=== PATIENT | female | born 2000 | race Caucasian/White ===

== ENCOUNTER → 2019-01-19 | Outpatient (REF) | payer MEDICAID, OTHER | LOC: M LAB REF 19:40 | PROVIDERS: ATTEND Physician Assistant | DX: J02.9 Acute pharyngitis, unspecified (principal) ==

== ENCOUNTER 2019-05-25 02:04 | Emergency (ER) | payer OTHER, SELFPAY ==
[~2019-05-25] VITALS: Ht 160 cm; Wt 65.7 kg
[2019-05-25] MEDS ORDERED: LEVO0.1T PO (02:16)
[2019-05-25] MEDS ORDERED: DIPH25CA32 PO (02:16)
[2019-05-25] MEDS ORDERED: diphenhydrAMINE INJ 50MG/ML VIAL (J1200) IV STA (02:25)
[2019-05-25] MEDS ORDERED: diphenhydrAMINE INJ 50MG/ML VIAL (J1200) IV ONE (02:30)
[2019-05-25] MEDS ORDERED: dexameTHASONE 20 MG/5 ML VIAL (J1100) IV ONE ×2 (02:30)
[2019-05-25] MEDS ORDERED: PRED20TA PO (03:52)
[2019-05-25 04:01] VITALS: BP 136/78
== END 2019-05-25 04:10 | disposition home or self-care (01) ==
LOC: M ED 02:04
DX: T78.40XA Allergy, unspecified, initial encounter (principal); Z91.011 Allergy to milk products; Z91.018 Allergy to other foods; Z79.899 Other long term (current) drug therapy
CPT/HCPCS: 96374; 96375; 99284; J1100; J1200

== ENCOUNTER → 2019-10-05 | Outpatient (REF) | payer OTHER ==
[~2019-10-05] MED LIST: DIPH25CA32 PO; LEVO0.1T PO; PRED20TA PO
[2019-10-05 14:05] LABS: ALT/SGPT 44 U/L (12-78); BILIRUBIN,TOTAL 0.5 MG/DL (0.2-1.0); BLOOD UREA NITROGEN 9 MG/DL (7-18); CALCIUM LEVEL 8.9 MG/DL (8.5-10.1); CARBON DIOXIDE LEVEL 27 MEQ/L (21-32); CHLORIDE LEVEL 107 MEQ/L (98-107); CHOLESTEROL LEVEL 114 MG/DL (<200); CHOLESTEROL RISK RATIO 2.375 (<5); CREATININE FOR GFR 0.66 MG/DL (0.55-1.30); FREE T4 0.93 NG/DL (0.78-1.33); GLUCOSE, FASTING 79 MG/DL (70-100); HDL CHOLESTEROL 48 MG/DL (>40); LDL CHOLESTEROL 50 MG/DL (<100); NON-HDL-C 66 MG/DL; POTASSIUM SERUM 3.9 MEQ/L (3.5-5.1); SODIUM LEVEL 140 MEQ/L (136-145); TOTAL 25(OH) VITAMIN D 22.6 NG/ML (30.0-100.0); TOTAL PROTEIN 7.1 GM/DL (6.4-8.2); TRIGLYCERIDES LEVEL 80 MG/DL (<150)
== END ==
LOC: M SFHCPLAZ 11:03
PROVIDERS: ATTEND Physician Assistant
DX: Z00.00 Encounter for general adult medical examination without abnormal findings (principal); Z13.29 Encounter for screening for other suspected endocrine disorder; Z13.220 Encounter for screening for lipoid disorders

== ENCOUNTER 2024-09-30 07:38 | Emergency (ER) | payer OTHER, SELFPAY ==
[~2024-09-30] VITALS: Ht 157.5 cm; Wt 74.1 kg
[~2024-09-30 07:38] MED LIST changes: +DIPH-435 PO; -DIPH25CA32 PO
[2024-09-30] MEDS ORDERED: ACET-683 PO (13:46)
[2024-09-30] MEDS ORDERED: IBUP80TA PO (13:47)
[2024-09-30 14:36] VITALS: BP 129/62; TEMP 98.3; O2SAT 100
== END 2024-09-30 14:36 | disposition home or self-care (01) ==
LOC: M ED 07:38
DX: S82.62XA Displaced fracture of lateral malleolus of left fibula, initial encounter for closed fracture (principal); Y92.9 Unspecified place or not applicable; Y93.9 Activity, unspecified; Y99.9 Unspecified external cause status; W01.0XXA Fall on same level from slipping, tripping and stumbling without subsequent striking against object, initial encounter; Z91.012 Allergy to eggs; Z91.011 Allergy to milk products; Z79.1 Long term (current) use of non-steroidal anti-inflammatories (NSAID)

== ENCOUNTER → 2024-10-01 | Outpatient (CLI) | payer SELFPAY ==
[~2024-10-01] MED LIST changes: +ACET-683 PO; +IBUP80TA PO
== END ==
LOC: M SOG 13:48
PROVIDERS: ATTEND Orthopaedic Surgery
DX: S82.61XA Displaced fracture of lateral malleolus of right fibula, initial encounter for closed fracture (principal); W18.30XA Fall on same level, unspecified, initial encounter; Y92.009 Unspecified place in unspecified non-institutional (private) residence as the place of occurrence of the external cause

== ENCOUNTER → 2024-10-01 | Outpatient (CLI) | payer SELFPAY ==
[2024-10-01 17:10] LABS: BASO % 0.2 % (0.0-1.0); EOS # 0.4 10^3/uL (0.0-0.5); HEMOGLOBIN 14.9 g/dl (12.0-15.5); LYMPH # 2.3 10^3/uL (1.5-5.0); LYMPH % 17.8 % (24.0-44.0); MEAN CORPUSCULAR HEMOGLOBIN 30.2 pg (27.0-33.0); MEAN CORPUSCULAR HGB CONC 33.1 g/dl (32.0-36.5); MEAN CORPUSCULAR VOLUME 91.3 fl (80.0-96.0); MONO # 0.8 10^3/uL (0.0-0.8); MONO % 6.3 % (2.0-8.0); NEUTROPHILS # 9.2 10^3/uL (1.5-8.5); NEUTROPHILS % 72.5 % (36.0-66.0); PLATELET COUNT, AUTOMATED 423 10^3/uL (150-450); RED BLOOD COUNT 4.93 10^6/uL (4.00-5.40); WHITE BLOOD COUNT 12.7 10^3/uL (4.0-10.0)
[2024-10-01 17:15] LABS: ALKALINE PHOSPHATASE 104 U/L (35-104); ALT/SGPT 20 U/L (7.0-40); AST/SGOT 15 U/L (<34); BILIRUBIN,TOTAL 0.5 MG/DL (0.3-1.2); BLOOD UREA NITROGEN 10 MG/DL (9-23); CALCIUM LEVEL 9.2 MG/DL (8.5-10.1); CARBON DIOXIDE LEVEL 29 MMOL/L (20-31); CHLORIDE LEVEL 102 MMOL/L (98-107); CREATININE FOR GFR 0.58 MG/DL (0.55-1.30); GLOMERULAR FILTRATION RATE > 60.0 (>60); GLUCOSE, FASTING 77 MG/DL (60-100); INR 0.97; POTASSIUM SERUM 4.3 MMOL/L (3.5-5.1); PROTHROMBIN TIME 13.2 SECONDS (12.5-14.5); SODIUM LEVEL 141 MMOL/L (136-145); TOTAL PROTEIN 7.6 G/DL (5.7-8.2)
[2024-10-01 17:16] LABS: TOTAL 25(OH) VITAMIN D 22.8 NG/ML (20.0-100.0)
== END ==
LOC: M PLALAB 15:18
PROVIDERS: ATTEND Orthopaedic Surgery
DX: S82.61XA Displaced fracture of lateral malleolus of right fibula, initial encounter for closed fracture (principal); W18.30XA Fall on same level, unspecified, initial encounter; Y92.009 Unspecified place in unspecified non-institutional (private) residence as the place of occurrence of the external cause

== ENCOUNTER 2024-10-06 06:20 | Day surgery (SDC) | payer SELFPAY ==
[~2024-10-06] VITALS: Ht 157.5 cm; Wt 75.2 kg
[2024-10-06] MEDS ORDERED: NS (Normal Saline) 0.9% 1,000 ML IV SCH ×2 (06:25→09:00)
[2024-10-06] MEDS ORDERED: fentaNYL 100 MCG/2 ML INJECTION As Ordered ONE (07:06)
[2024-10-06] MEDS: LR 1,000 ML IV SCH (07:06)
[2024-10-06] MEDS ORDERED: KETAMINE HCL 200MG/20ML VIAL As Ordered ONE (07:06)
[2024-10-06] MEDS ORDERED: propofoL 200 MG/20 ML VIAL As Ordered ONE (07:06)
[2024-10-06] MEDS ORDERED: MIDAZOLAM INJ 2MG/2ML VIAL As Ordered ONE (07:06)
[2024-10-06] MEDS ORDERED: LIDOCAINE 2% 100MG/5ML SDV (FOR ANES.) As Ordered ONE (07:07)
[2024-10-06] MEDS ORDERED: ROCURONIUM BROMIDE 50MG/5ML VIAL As Ordered ONE (07:07)
[2024-10-06] MEDS ORDERED: ONDANSETRON 4MG 2ML VIAL As Ordered ONE (07:08)
[2024-10-06] MEDS ORDERED: KETOROLAC 60MG 2ML VIAL As Ordered ONE (07:08)
[2024-10-06] MEDS ORDERED: SUGAMMADEX SODIUM 500 MG/5 ML VIAL (BRIDION) As Ordered ONE (07:09)
[2024-10-06] MEDS: dexAMETHasone 10MG/1ML VIAL PRES.FREE PN ONE (07:20)
[2024-10-06] MEDS ORDERED: MIDAZOLAM INJ 2MG/2ML VIAL IV PRN (07:20)
[2024-10-06] MEDS: ROPIvacaine 0.5% 30ML VIAL PN ONE (07:20)
[2024-10-06] MEDS ORDERED: LIDOCAINE 1% SDV 5ML VIAL As Ordered ONE (07:23)
[2024-10-06] MEDS: fentaNYL 100 MCG/2 ML INJECTION IV PRN (07:24)
[2024-10-06] MEDS ORDERED: LIDOCAINE 1% SDV 5ML VIAL PN ONE (07:40)
[2024-10-06] MEDS: ceFAZolin SOD 2 GM in IV 1 EA IV ONE (07:50)
[2024-10-06] MEDS ORDERED: ACETAMINOPHEN 1000MG/100ML IV BAG As Ordered ONE (07:57)
[2024-10-06] MEDS ORDERED: fentaNYL 100 MCG/2 ML INJECTION IV PRN (09:00)
[2024-10-06] MEDS ORDERED: HYDROMORPHONE HCL 0.5 MG/ 0.5 ML SYRINGE IV PRN (09:00)
[2024-10-06] MEDS ORDERED: oxyCODONE 5MG TAB PO PRN (09:00)
[2024-10-06] MEDS ORDERED: ONDANSETRON 4MG 2ML VIAL IV PRN (09:00)
[2024-10-06] MEDS ORDERED: TRAM50TA2 PO (09:33)
[2024-10-06] MEDS: ONDANSETRON 4MG 2ML VIAL IV PRN (11:14)
[2024-10-06 11:20] VITALS: BP 112/62; TEMP 97; O2SAT 98
== END 2024-10-06 11:30 | disposition home or self-care (01) ==
LOC: M SDC 06:20
PROVIDERS: ATTEND Orthopaedic Surgery
DX: S82.62XA Displaced fracture of lateral malleolus of left fibula, initial encounter for closed fracture (principal); S93.432A Sprain of tibiofibular ligament of left ankle, initial encounter; X58.XXXA Exposure to other specified factors, initial encounter; Y92.9 Unspecified place or not applicable; Y93.9 Activity, unspecified; Y99.9 Unspecified external cause status; Z91.018 Allergy to other foods; Z91.012 Allergy to eggs; Z91.011 Allergy to milk products
CPT/HCPCS: 27792; 27829; 73610; 76000; 81025; C1713; J0131; J0665; J0690; J1100; J1885; J2250; J2405; J2795; J3010

== ENCOUNTER → 2024-10-15 | Outpatient (CLI) | payer SELFPAY ==
[~2024-10-15] MED LIST changes: +TRAM50TA2 PO
== END ==
LOC: M SOG 07:53
PROVIDERS: ATTEND Orthopaedic Surgery
DX: Z47.89 Encounter for other orthopedic aftercare (principal)

== ENCOUNTER → 2024-10-29 | Outpatient (CLI) | payer SELFPAY | LOC: M SOG 07:51 | PROVIDERS: ATTEND Orthopaedic Surgery | DX: S82.62XD Displaced fracture of lateral malleolus of left fibula, subsequent encounter for closed fracture with routine healing (principal) ==

== ENCOUNTER → 2024-11-19 | Outpatient (CLI) | payer SELFPAY | LOC: M SOG 07:48 | PROVIDERS: ATTEND Orthopaedic Surgery | DX: S82.62XD Displaced fracture of lateral malleolus of left fibula, subsequent encounter for closed fracture with routine healing (principal) ==

== ENCOUNTER 2024-11-29 13:49 | Inpatient (IN) | payer SELFPAY ==
[~2024-11-29] VITALS: Ht 157.5 cm; Wt 77.6 kg
[2024-11-29 15:06] LABS: BASO % 0.3 % (0.0-1.0); EOS # 0.4 10^3/uL (0.0-0.5); EOS % 2.8 % (0.0-3.0); HEMATOCRIT 38.7 % (36.0-47.0); HEMOGLOBIN 12.8 g/dl (12.0-15.5); LYMPH # 1.8 10^3/uL (1.5-5.0); LYMPH % 12.5 % (24.0-44.0); MEAN CORPUSCULAR HGB CONC 33.1 g/dl (32.0-36.5); MEAN CORPUSCULAR VOLUME 90.8 fl (80.0-96.0); MONO # 1.2 10^3/uL (0.0-0.8); MONO % 8.2 % (2.0-8.0); NEUTROPHILS % 75.8 % (36.0-66.0); PLATELET COUNT, AUTOMATED 450 10^3/uL (150-450); RED BLOOD COUNT 4.26 10^6/uL (4.00-5.40); WHITE BLOOD COUNT 14.5 10^3/uL (4.0-10.0)
[2024-11-29 15:17] LABS: ERYTHROCYTE SEDIMENTATION RATE 87 mm/hr (0-20)
[2024-11-29 15:30] LABS: ALBUMIN 3.6 G/DL (3.2-5.2); ALKALINE PHOSPHATASE 116 U/L (35-104); ALT/SGPT 20 U/L (7.0-40); AST/SGOT 15 U/L (<34); BILIRUBIN,DIRECT 0.2 MG/DL (<0.4); BILIRUBIN,TOTAL 0.6 MG/DL (0.3-1.2); BLOOD UREA NITROGEN 8 MG/DL (9-23); CARBON DIOXIDE LEVEL 29 MMOL/L (20-31); CHLORIDE LEVEL 101 MMOL/L (98-107); CREATININE FOR GFR 0.61 MG/DL (0.55-1.30); GLOMERULAR FILTRATION RATE > 90.0 (>60); GLUCOSE, FASTING 83 MG/DL (60-100); POTASSIUM SERUM 3.5 MMOL/L (3.5-5.1); SODIUM LEVEL 139 MMOL/L (136-145); TOTAL PROTEIN 7.6 G/DL (5.7-8.2)
[2024-11-29 15:48] LABS: C REACTIVE PROTEIN QUANTITATIV 23.66 MG/DL (<1.0)
[2024-11-29] MEDS: ceFAZolin SOD 2 GM in DEXTROSE 5% (D5W) ADV/MINI-BAG 50 ML IV ONE (19:11)
[2024-11-29] MEDS: NS (Normal Saline) 0.9% 1,000 ML IV ONE (19:11)
[2024-11-29] MEDS: KETOROLAC 30 MG/ML 1ML VIAL IV ONE (21:52)
[2024-11-29] MEDS ORDERED: MED REC IN PROGRESS XX SCH (22:55)
[2024-11-30] MEDS: NS (Normal Saline) 0.9% 1,000 ML IV SCH (00:06)
[2024-11-30] MEDS ORDERED: D 1010004 PO (00:46)
[2024-11-30] MEDS ORDERED: IBUP1TAB7 PO (00:46)
[2024-11-30] MEDS ORDERED: ACET-683 PO (00:46)
[2024-11-30] MEDS ORDERED: HOME MED LIST COMPLETE! XX SCH (00:50)
[2024-11-30] MEDS: ceFAZolin SODIUM 2 GM in DEXTROSE 5% (D5W) ADV/MINI-BAG 50 ML IV SCH (02:14)
[2024-11-30] MEDS: NORCO, ANEXSIA 5/325MG TABLET (HYDROcodone/ACETAMINOPHEN) PO PRN (02:17)
[2024-11-30 05:50] LABS: HEMATOCRIT 34.2 % (36.0-47.0); HEMOGLOBIN 11.4 g/dl (12.0-15.5); MEAN CORPUSCULAR HGB CONC 33.3 g/dl (32.0-36.5); PLATELET COUNT, AUTOMATED 388 10^3/uL (150-450); WHITE BLOOD COUNT 14.1 10^3/uL (4.0-10.0)
[2024-11-30] MEDS: KETOROLAC 30 MG/ML 1ML VIAL IV PRN (06:21)
[2024-11-30 06:26] LABS: BLOOD UREA NITROGEN 8 MG/DL (9-23); CALCIUM LEVEL 7.9 MG/DL (8.5-10.1); CARBON DIOXIDE LEVEL 26 MMOL/L (20-31); CHLORIDE LEVEL 108 MMOL/L (98-107); GLOMERULAR FILTRATION RATE > 90.0 (>60); GLUCOSE, FASTING 101 MG/DL (60-100); POTASSIUM SERUM 3.6 MMOL/L (3.5-5.1); SODIUM LEVEL 143 MMOL/L (136-145)
[2024-11-30] MEDS ORDERED: VANCOMYCIN HCL 1,000 MG, VIAL MATE ADAPTER 1 EACH in NS 250 ML IV SCH (07:10)
[2024-11-30] MEDS: PIPERACILLIN/TAZOBACTAM SOD 4.5 GM in DEXTROSE 5% (D5W) ADV/MINI-BAG 50 ML IV SCH (08:04)
[2024-11-30] MEDS: VANCOMYCIN HCL 1,500 MG, VIAL MATE ADAPTER 1 EACH in NS 500 ML IV ONE (09:41)
[2024-11-30 10:30] VITALS: BP 128/92; TEMP 97.9; O2SAT 98
[2024-11-30 11:13] LABS: C REACTIVE PROTEIN QUANTITATIV 18.86 MG/DL (<1.0)
[2024-11-30] MEDS: PERCOCET 5MG/325MG TAB PO PRN (12:33)
[2024-11-30] MEDS: ENOXAPARIN 40MG/0.4ML SYRINGE (J1650 PER 10MG) SC SCH (12:33)
[2024-11-30] MEDS: LACTOBACILLUS ACIDOPHILUS CAP (BACID) PO SCH (17:40)
[2024-11-30] MEDS: VANCOMYCIN HCL 1,000 MG, VIAL MATE ADAPTER 1 EACH in NS 250 ML IV SCH (17:41)
[2024-11-30 20:00] VITALS: BP 120/86; TEMP 97.3; O2SAT 98
[2024-12-01] VITALS (7 sets, daily range): BP systolic 116–131; BP diastolic 70–90; TEMP 96.8–98.2; O2SAT 95–99
[2024-12-01 07:39] LABS: HEMATOCRIT 31.2 % (36.0-47.0); HEMOGLOBIN 10.6 g/dl (12.0-15.5); MEAN CORPUSCULAR VOLUME 88.4 fl (80.0-96.0); PLATELET COUNT, AUTOMATED 401 10^3/uL (150-450); RED BLOOD COUNT 3.53 10^6/uL (4.00-5.40); WHITE BLOOD COUNT 17.5 10^3/uL (4.0-10.0)
[2024-12-01 08:14] LABS: ALBUMIN 2.3 G/DL (3.2-5.2); ALKALINE PHOSPHATASE 96 U/L (35-104); ALT/SGPT 17 U/L (7.0-40); AST/SGOT 19 U/L (<34); BILIRUBIN,TOTAL 0.7 MG/DL (0.3-1.2); BLOOD UREA NITROGEN < 5 MG/DL (9-23); CALCIUM LEVEL 7.8 MG/DL (8.5-10.1); CARBON DIOXIDE LEVEL 24 MMOL/L (20-31); CHLORIDE LEVEL 104 MMOL/L (98-107); CREATININE FOR GFR 0.56 MG/DL (0.55-1.30); GLOMERULAR FILTRATION RATE > 90.0 (>60); GLUCOSE, FASTING 82 MG/DL (60-100); POTASSIUM SERUM 3.3 MMOL/L (3.5-5.1); SODIUM LEVEL 138 MMOL/L (136-145); TOTAL PROTEIN 5.4 G/DL (5.7-8.2)
[2024-12-01 08:43] LABS: C REACTIVE PROTEIN QUANTITATIV 19.98 MG/DL (<1.0)
[2024-12-01] MEDS: POTASSIUM CHLORIDE 10MEQ SR TABLET PO ONE (12:55)
[2024-12-01] MEDS: ACETAMINOPHEN 325 MG TAB PO PRN (20:38)
[2024-12-02] VITALS (10 sets, daily range): BP systolic 114–139; BP diastolic 67–96; TEMP 97.2–97.9; O2SAT 91–97
[2024-12-02 08:00] LABS: HEMATOCRIT 33.5 % (36.0-47.0); HEMOGLOBIN 11.2 g/dl (12.0-15.5); MEAN CORPUSCULAR HEMOGLOBIN 30.1 pg (27.0-33.0); MEAN CORPUSCULAR HGB CONC 33.4 g/dl (32.0-36.5); MEAN CORPUSCULAR VOLUME 90.1 fl (80.0-96.0); PLATELET COUNT, AUTOMATED 428 10^3/uL (150-450); RED BLOOD COUNT 3.72 10^6/uL (4.00-5.40); WHITE BLOOD COUNT 16.5 10^3/uL (4.0-10.0)
[2024-12-02 08:55] LABS: ALBUMIN 2.4 G/DL (3.2-5.2); ALKALINE PHOSPHATASE 135 U/L (35-104); ALT/SGPT 28 U/L (7.0-40); AST/SGOT 35 U/L (<34); BILIRUBIN,TOTAL 0.8 MG/DL (0.3-1.2); BLOOD UREA NITROGEN 5 MG/DL (9-23); C REACTIVE PROTEIN QUANTITATIV 21.15 MG/DL (<1.0); CALCIUM LEVEL 8.1 MG/DL (8.5-10.1); CARBON DIOXIDE LEVEL 24 MMOL/L (20-31); CHLORIDE LEVEL 106 MMOL/L (98-107); CREATININE FOR GFR 0.55 MG/DL (0.55-1.30); GLOMERULAR FILTRATION RATE > 90.0 (>60); GLUCOSE, FASTING 76 MG/DL (60-100); POTASSIUM SERUM 3.7 MMOL/L (3.5-5.1); SODIUM LEVEL 141 MMOL/L (136-145); TOTAL PROTEIN 5.9 G/DL (5.7-8.2)
[2024-12-02] MEDS ORDERED: MIDAZOLAM INJ 2MG/2ML VIAL As Ordered ONE (09:03)
[2024-12-02] MEDS ORDERED: fentaNYL 100 MCG/2 ML INJECTION As Ordered ONE (09:04)
[2024-12-02] MEDS ORDERED: ONDANSETRON 4MG 2ML VIAL As Ordered ONE (09:04)
[2024-12-02] MEDS ORDERED: ACETAMINOPHEN 1000MG/100ML IV BAG As Ordered ONE (09:04)
[2024-12-02] MEDS ORDERED: LIDOCAINE 2% 100MG/5ML SDV (FOR ANES.) As Ordered ONE (09:04)
[2024-12-02] MEDS ORDERED: propofoL 200 MG/20 ML VIAL As Ordered ONE (09:04)
[2024-12-02] MEDS ORDERED: ePHEDrine SULFATE 25 MG/5 ML(5MG/ML) SYRINGE As Ordered ONE (09:52)
[2024-12-02] MEDS: ceFAZolin 1GM VIAL As Ordered ONE (10:01)
[2024-12-02] MEDS: VANCOMYCIN 500MG/10ML VIAL As Ordered ONE (10:05)
[2024-12-02] MEDS: VANCOMYCIN HCL 1,250 MG, VIAL MATE ADAPTER 1 EACH in NS 250 ML IV SCH ×2 (10:35→20:36)
[2024-12-02] MEDS ORDERED: HYDROmorphone HCL 2MG/ML 1ML VIAL As Ordered ONE (10:51)
[2024-12-02] MEDS: VANCOMYCIN 1000MG/20ML VIAL As Ordered ONE (11:28)
[2024-12-02] MEDS: BUPivacaine LIPOSOME/PF 266MG 20ML VIAL (13.3MG/ML)(EXPAREL) As Ordered ONE (11:30)
[2024-12-02] MEDS ORDERED: MEPERIDINE 25 MG/ML 1ML VIAL IV PRN (11:45)
[2024-12-02] MEDS ORDERED: diphenhydrAMINE 50MG/ML VIAL IV PRN (11:45)
[2024-12-02] MEDS: oxyCODONE 5MG TAB PO PRN (12:01)
[2024-12-02] MEDS: fentaNYL 100 MCG/2 ML INJECTION IV PRN (12:02)
[2024-12-02] MEDS: ONDANSETRON 4MG 2ML VIAL IV PRN (12:21)
[2024-12-02] MEDS: METOCLOPRAMIDE INJ 10MG/2ML VIAL IV PRN (12:21)
[2024-12-02] MEDS: LR 1,000 ML IV SCH (13:14)
[2024-12-02] MEDS: VANCOMYCIN HCL 1,000 MG, VIAL MATE ADAPTER 1 EACH in NS 250 ML IV ONE (13:57)
[2024-12-03 00:12] VITALS: BP 98/68; TEMP 97.2; O2SAT 95
[2024-12-03 04:11] VITALS: BP 103/71; TEMP 97.9; O2SAT 94
[2024-12-03] MEDS ORDERED: MOM 30ML SUSPENSION UDC PO PRN (07:20)
[2024-12-03 07:36] LABS: HEMATOCRIT 27.5 % (36.0-47.0); MEAN CORPUSCULAR HEMOGLOBIN 30.4 pg (27.0-33.0); MEAN CORPUSCULAR HGB CONC 33.5 g/dl (32.0-36.5); MEAN CORPUSCULAR VOLUME 90.8 fl (80.0-96.0); PLATELET COUNT, AUTOMATED 449 10^3/uL (150-450); RED BLOOD COUNT 3.03 10^6/uL (4.00-5.40)
[2024-12-03 07:49] LABS: HEMOGLOBIN 9.2 g/dl (12.0-15.5)
[2024-12-03 08:00] VITALS: BP 127/91; TEMP 97.7; O2SAT 98
[2024-12-03 08:01] LABS: ALBUMIN 2.4 G/DL (3.2-5.2); ALKALINE PHOSPHATASE 121 U/L (35-104); ALT/SGPT 24 U/L (7.0-40); AST/SGOT 20 U/L (<34); BILIRUBIN,TOTAL 0.4 MG/DL (0.3-1.2); BLOOD UREA NITROGEN 5 MG/DL (9-23); CALCIUM LEVEL 8.3 MG/DL (8.5-10.1); CARBON DIOXIDE LEVEL 26 MMOL/L (20-31); CHLORIDE LEVEL 107 MMOL/L (98-107); CREATININE FOR GFR 0.59 MG/DL (0.55-1.30); GLOMERULAR FILTRATION RATE > 90.0 (>60); GLUCOSE, FASTING 82 MG/DL (60-100); POTASSIUM SERUM 3.9 MMOL/L (3.5-5.1); SODIUM LEVEL 144 MMOL/L (136-145); TOTAL PROTEIN 5.9 G/DL (5.7-8.2)
[2024-12-03 08:18] LABS: C REACTIVE PROTEIN QUANTITATIV 18.27 MG/DL (<1.0)
[2024-12-03] MEDS: DOCUSATE SODIUM 100MG CAPSULE PO SCH (08:37)
[2024-12-03] MEDS: PERCOCET 5MG/325MG TAB PO PRN (09:50)
[2024-12-03 12:00] VITALS: BP 127/91; TEMP 97.9
[2024-12-03] MEDS: ONDANSETRON 4MG 2ML VIAL IV PRN (13:40)
[2024-12-03 16:00] VITALS: BP 125/85; TEMP 97.5
[2024-12-03] MEDS: FUROSEMIDE 20MG/2ML VIAL IV ONE (16:09)
[2024-12-03] MEDS: VANCOMYCIN HCL 1,000 MG, VIAL MATE ADAPTER 1 EACH in NS 250 ML IV SCH (19:06)
[2024-12-03] MEDS: SENNA 8.6 MG TAB (SENOKOT) PO SCH (20:26)
[2024-12-03 21:45] VITALS: BP 133/92; TEMP 97.5; O2SAT 100
[2024-12-04 04:33] VITALS: BP 126/80; TEMP 97.7; O2SAT 92
[2024-12-04 07:22] LABS: HEMOGLOBIN 10.7 g/dl (12.0-15.5); MEAN CORPUSCULAR HEMOGLOBIN 29.5 pg (27.0-33.0); MEAN CORPUSCULAR HGB CONC 32.4 g/dl (32.0-36.5); MEAN CORPUSCULAR VOLUME 90.9 fl (80.0-96.0); PLATELET COUNT, AUTOMATED 535 10^3/uL (150-450); RED BLOOD COUNT 3.63 10^6/uL (4.00-5.40); WHITE BLOOD COUNT 14.5 10^3/uL (4.0-10.0)
[2024-12-04] MEDS ORDERED: ISOVUE-370 76% 100ML VIAL As Ordered ONE (07:26)
[2024-12-04 08:00] VITALS: BP 128/92; TEMP 97.3; TEMP 97.5; O2SAT 97
[2024-12-04 08:10] LABS: ALBUMIN 2.4 G/DL (3.2-5.2); BILIRUBIN,TOTAL 0.8 MG/DL (0.3-1.2); C REACTIVE PROTEIN QUANTITATIV 12.12 MG/DL (<1.0); CALCIUM LEVEL 8.2 MG/DL (8.5-10.1); CREATININE FOR GFR 1.45 MG/DL (0.55-1.30); GLOMERULAR FILTRATION RATE 51.3 (>60); POTASSIUM SERUM 3.4 MMOL/L (3.5-5.1); TOTAL PROTEIN 5.8 G/DL (5.7-8.2)
[2024-12-04] MEDS: NS (Normal Saline) 0.9% 1,000 ML IV SCH (10:35)
[2024-12-04] MEDS: NS 500 ML IV ONE (10:35)
[2024-12-04] MEDS: POTASSIUM CHLORIDE 10MEQ SR TABLET PO ONE (10:35)
[2024-12-04] MEDS: ceFAZolin SODIUM 2 GM in DEXTROSE 5% (D5W) ADV/MINI-BAG 50 ML IV SCH (11:41)
[2024-12-04 12:00] VITALS: BP 129/92; TEMP 97.3; O2SAT 94
[2024-12-04 16:00] VITALS: BP 136/93; TEMP 97.5
[2024-12-04 16:25] LABS: CALCIUM LEVEL 8.7 MG/DL (8.5-10.1); CREATININE FOR GFR 1.39 MG/DL (0.55-1.30); POTASSIUM SERUM 3.7 MMOL/L (3.5-5.1)
[2024-12-04 20:07] VITALS: BP 135/92; TEMP 97.9; O2SAT 96
[2024-12-05] VITALS: BP 117/74; TEMP 97.7; O2SAT 96
[2024-12-05 04:00] VITALS: BP 133/86; TEMP 97.7; O2SAT 92
[2024-12-05 06:33] LABS: BASO % 0.2 % (0.0-1.0); EOS # 0.7 10^3/uL (0.0-0.5); EOS % 4.7 % (0.0-3.0); HEMATOCRIT 28.9 % (36.0-47.0); HEMOGLOBIN 9.5 g/dl (12.0-15.5); LYMPH # 1.9 10^3/uL (1.5-5.0); LYMPH % 12.7 % (24.0-44.0); MEAN CORPUSCULAR HEMOGLOBIN 29.9 pg (27.0-33.0); MEAN CORPUSCULAR HGB CONC 32.9 g/dl (32.0-36.5); MEAN CORPUSCULAR VOLUME 90.9 fl (80.0-96.0); MONO % 7.1 % (2.0-8.0); NEUTROPHILS # 10.8 10^3/uL (1.5-8.5); NEUTROPHILS % 74.4 % (36.0-66.0); PLATELET COUNT, AUTOMATED 484 10^3/uL (150-450); RED BLOOD COUNT 3.18 10^6/uL (4.00-5.40); WHITE BLOOD COUNT 14.5 10^3/uL (4.0-10.0)
[2024-12-05 06:59] LABS: C REACTIVE PROTEIN QUANTITATIV 9.64 MG/DL (<1.0); CALCIUM LEVEL 8.1 MG/DL (8.5-10.1); CREATININE FOR GFR 1.29 MG/DL (0.55-1.30); GLOMERULAR FILTRATION RATE 59.1 (>60); MAGNESIUM LEVEL 1.9 MG/DL (1.8-2.4); POTASSIUM SERUM 3.6 MMOL/L (3.5-5.1)
[2024-12-05] MEDS ORDERED: RISATAB3 PO (10:03)
[2024-12-05] MEDS ORDERED: CEPH500T PO (10:03)
[2024-12-05] MEDS ORDERED: MIRA3350 PO (10:03)
[2024-12-05] MEDS ORDERED: PERCOCET PO (10:03)
[2024-12-05] MEDS ORDERED: MM S100C PO (10:03)
[2024-12-05 12:00] VITALS: BP 136/88; TEMP 97.3; O2SAT 98
[2024-12-05] MEDS ORDERED: ASPI81CH33 PO (12:08)
== END 2024-12-05 15:40 | disposition home or self-care (01) | DRG 313 ==
LOC: M ED 13:49 → M ED INP 21:32 → M MS5PR 11-30 10:20
PROVIDERS: ADMIT Student in an Organized Health Care Education/Training Program; ATTEND Internal Medicine
PROC: 0SPG04Z Removal of Internal Fixation Device from Left Ankle Joint, Open Approach (ICD-10-PCS; principal; 2024-12-02 10:00)
DX: T84.625A Infection and inflammatory reaction due to internal fixation device of left fibula, initial encounter (principal); A41.9 Sepsis, unspecified organism; N17.9 Acute kidney failure, unspecified; Z91.012 Allergy to eggs; Z91.011 Allergy to milk products; Z91.018 Allergy to other foods; L03.116 Cellulitis of left lower limb; S82.62XD Displaced fracture of lateral malleolus of left fibula, subsequent encounter for closed fracture with routine healing; E87.6 Hypokalemia; R79.89 Other specified abnormal findings of blood chemistry; J98.11 Atelectasis

== ENCOUNTER → 2024-12-08 | Outpatient (CLI) | payer SELFPAY ==
[~2024-12-08] MED LIST changes: +ASPI81CH33 PO; +CEPH500T PO; +D 1010004 PO; +IBUP1TAB7 PO; +MIRA3350 PO; +MM S100C PO; +PERCOCET PO; +RISATAB3 PO
== END ==
LOC: M SOG 08:52
PROVIDERS: ATTEND Physician Assistant
DX: T84.625A Infection and inflammatory reaction due to internal fixation device of left fibula, initial encounter (principal); Y83.1 Surgical operation with implant of artificial internal device as the cause of abnormal reaction of the patient, or of later complication, without mention of misadventure at the time of the procedure

== ENCOUNTER → 2024-12-10 | Outpatient (CLI) | payer SELFPAY ==
[2024-12-10 10:23] LABS: BASO # 0.1 10^3/uL (0.0-0.2); BASO % 0.4 % (0.0-1.0); EOS # 0.7 10^3/uL (0.0-0.5); EOS % 4.8 % (0.0-3.0); HEMATOCRIT 37.2 % (36.0-47.0); HEMOGLOBIN 12.2 g/dl (12.0-15.5); LYMPH # 2.7 10^3/uL (1.5-5.0); LYMPH % 19.8 % (24.0-44.0); MEAN CORPUSCULAR HEMOGLOBIN 29.6 pg (27.0-33.0); MEAN CORPUSCULAR HGB CONC 32.8 g/dl (32.0-36.5); MEAN CORPUSCULAR VOLUME 90.3 fl (80.0-96.0); MONO % 7.2 % (2.0-8.0); NEUTROPHILS # 9.2 10^3/uL (1.5-8.5); NEUTROPHILS % 66.9 % (36.0-66.0); PLATELET COUNT, AUTOMATED 695 10^3/uL (150-450); RED BLOOD COUNT 4.12 10^6/uL (4.00-5.40); WHITE BLOOD COUNT 13.7 10^3/uL (4.0-10.0)
[2024-12-10 10:31] LABS: ERYTHROCYTE SEDIMENTATION RATE 86 mm/hr (0-20)
[2024-12-10 10:54] LABS: C REACTIVE PROTEIN QUANTITATIV 1.42 MG/DL (<1.0)
[2024-12-10 11:01] LABS: PROLACTIN 56.88 NG/ML
[2024-12-10 11:04] LABS: ALBUMIN 3.6 G/DL (3.2-5.2); ALKALINE PHOSPHATASE 121 U/L (35-104); ALT/SGPT 61 U/L (7.0-40); AST/SGOT 19 U/L (<34); BILIRUBIN,TOTAL 0.4 MG/DL (0.3-1.2); BLOOD UREA NITROGEN 12 MG/DL (9-23); CALCIUM LEVEL 9.5 MG/DL (8.5-10.1); CARBON DIOXIDE LEVEL 26 MMOL/L (20-31); CHLORIDE LEVEL 102 MMOL/L (98-107); CREATININE FOR GFR 0.79 MG/DL (0.55-1.30); GLOMERULAR FILTRATION RATE > 90.0 (>60); GLUCOSE, FASTING 78 MG/DL (60-100); POTASSIUM SERUM 4.2 MMOL/L (3.5-5.1); SODIUM LEVEL 140 MMOL/L (136-145); TOTAL PROTEIN 7.8 G/DL (5.7-8.2)
== END ==
LOC: M LAB 09:48
PROVIDERS: ATTEND Orthopaedic Surgery
DX: T84.625A Infection and inflammatory reaction due to internal fixation device of left fibula, initial encounter (principal); Y83.1 Surgical operation with implant of artificial internal device as the cause of abnormal reaction of the patient, or of later complication, without mention of misadventure at the time of the procedure

== ENCOUNTER → 2024-12-11 | Outpatient (CLI) | payer SELFPAY | LOC: M SOG 07:51 | PROVIDERS: ATTEND Physician Assistant | DX: T84.625A Infection and inflammatory reaction due to internal fixation device of left fibula, initial encounter (principal); Y83.1 Surgical operation with implant of artificial internal device as the cause of abnormal reaction of the patient, or of later complication, without mention of misadventure at the time of the procedure ==

== ENCOUNTER → 2024-12-16 | Outpatient (CLI) | payer SELFPAY | LOC: M SOG 08:03 | PROVIDERS: ATTEND Orthopaedic Surgery | DX: T84.62 Infection and inflammatory reaction due to internal fixation device of leg (principal); Y83.1 Surgical operation with implant of artificial internal device as the cause of abnormal reaction of the patient, or of later complication, without mention of misadventure at the time of the procedure ==

== ENCOUNTER → 2024-12-22 | Outpatient (CLI) | payer SELFPAY ==
[2024-12-22 11:29] LABS: BASO # 0.1 10^3/uL (0.0-0.2); BASO % 0.7 % (0.0-1.0); EOS # 0.2 10^3/uL (0.0-0.5); EOS % 2.8 % (0.0-3.0); HEMATOCRIT 35.2 % (36.0-47.0); HEMOGLOBIN 11.8 g/dl (12.0-15.5); LYMPH # 1.7 10^3/uL (1.5-5.0); LYMPH % 21.9 % (24.0-44.0); MEAN CORPUSCULAR HEMOGLOBIN 29.9 pg (27.0-33.0); MEAN CORPUSCULAR HGB CONC 33.5 g/dl (32.0-36.5); MEAN CORPUSCULAR VOLUME 89.1 fl (80.0-96.0); MONO # 0.5 10^3/uL (0.0-0.8); MONO % 7.1 % (2.0-8.0); NEUTROPHILS # 5.1 10^3/uL (1.5-8.5); NEUTROPHILS % 67.2 % (36.0-66.0); PLATELET COUNT, AUTOMATED 484 10^3/uL (150-450); RED BLOOD COUNT 3.95 10^6/uL (4.00-5.40); WHITE BLOOD COUNT 7.6 10^3/uL (4.0-10.0)
[2024-12-22 11:39] LABS: ERYTHROCYTE SEDIMENTATION RATE 54 mm/hr (0-20)
[2024-12-22 11:59] LABS: C REACTIVE PROTEIN QUANTITATIV 1.05 MG/DL (<1.0)
[2024-12-22 12:06] LABS: PROCALCITONIN 0.05 ng/ml
== END ==
LOC: M LAB 10:14
PROVIDERS: ATTEND Orthopaedic Surgery
DX: T84.62 Infection and inflammatory reaction due to internal fixation device of leg (principal)

== ENCOUNTER → 2024-12-31 | Outpatient (CLI) | payer SELFPAY | LOC: M SOG 06:52 | PROVIDERS: ATTEND Orthopaedic Surgery | DX: T84.62 Infection and inflammatory reaction due to internal fixation device of leg (principal); S82.62XD Displaced fracture of lateral malleolus of left fibula, subsequent encounter for closed fracture with routine healing ==

== ENCOUNTER 2025-02-19 11:22 | Outpatient (RCR) | payer SELFPAY | END 2025-03-11 | LOC: M PT 11:22 | PROVIDERS: ATTEND Orthopaedic Surgery | DX: S82.62XD Displaced fracture of lateral malleolus of left fibula, subsequent encounter for closed fracture with routine healing (principal) ==

== ENCOUNTER → 2025-05-11 | Outpatient (CLI) | payer SELFPAY | LOC: M WHC 08:31 | PROVIDERS: ATTEND Student in an Organized Health Care Education/Training Program | DX: R92.311 Mammographic fatty tissue density, right breast (principal) ==

== ENCOUNTER → 2025-05-12 | Outpatient (CLI) | payer SELFPAY | LOC: M SOG 07:19 | PROVIDERS: ATTEND Orthopaedic Surgery | DX: T84.62 Infection and inflammatory reaction due to internal fixation device of leg (principal) ==